=== PATIENT | female | born 1975 | race Caucasian/White ===

== ENCOUNTER 2021-05-14 20:09 | Emergency (ER) | payer MEDICARE, BC, MEDICAID, SELFPAY ==
--- NOTE | ~2021-05-14 | XR_ITS ---
EXAMINATION: XR shoulder RT min 2V EXAM DATE: 05/14/2021 20:35 INDICATION: Fell yesterday with right shoulder pain, initial encounter. TECHNIQUE: The following right shoulder projections obtained: frontal projection with internal rotati on, frontal projection with external rotation, Grashey, and scapular Y view (4+ views). There are no prior studies for comparison. FINDINGS: There is acute closed posttraumatic fracture through the right clavicular at its distal asp ect, essentially nondisplaced. This appears to be extra-articular, just proximal to the acromioclavic ular joint. The glenohumeral joint is unremarkable, no other fracture identified. IMPRESSION: Acute right clavicular fracture near the acromioclavicular joint. Reviewed, dictated and finalized at location A.
[2021-05-14 20:20] VITALS: BP 101/72; PULSE 96; RESP 20; TEMP 36.9; O2SAT 100
--- NOTE | 2021-05-14 20:28 | ED.UPPEXIN ---
HPI - Extremity Injury (Upper) General Chief Complaint: Extremity Injury, Upper Stated Complaint: shoulder pain Time Seen by Provider: 05/14/21 20:13 Source: patient Mode of arrival: ambulatory Limitations: no limitations History of Present Illness HPI narrative: This is a 45-year-old female that presents to the emergency department for right shoulder pain after a fall yesterday afternoon. Reports she tripped and fell. Landed on her right shoulder. Does report hitting her head. Denies loss of consciousness. Reports since the fall she has had pain in her right shoulder. Worse with movement and relieved with rest. She has not taken anything for pain. Denies vision changes, vomiting, numbness, or weakness. Related Data Allergies Allergy/AdvReac Type Severity Reaction Status Date / Time No Known Allergies Allergy Unverified 05/14/21 20:24 Review of Systems Review of Systems: Narrative: CONSTITUTIONAL: Denies fever EYES: Denies visual changes GASTROINTESTINAL: Denies vomiting MUSCULOSKELETAL: Reports joint pain and myalgia. Denies back pain NEUROLOGIC: Denies headache, numbness, or weakness. All systems reviewed & are unremarkable except as noted in HPI and below PMFSH Past Medical History Medical History (Updated 05/14/21 @ 21:28 by Collette Meza PA-C) History of autism Social History Social History (Updated 05/14/21 @ 20:30 by Collette Meza PA-C) Smoking status: Never smoker Exam Narrative: Exam Narrative: GENERAL: Well-appearing, well-nourished, and in no acute distress. HEAD: Normocephalic, atraumatic. EYES: PERRLA and EOMI. ENT: Nares clear, no rhinorrhea or epistaxis. Mucous membranes moist. Oropharynx without tonsillar hypertrophy exudate or other lesions. Bilateral TMs pearly isaac non-bulging NECK: Supple. No adenopathy or masses. No midline cervical spine tenderness CHEST: Clear to auscultation. No respiratory distress. No wheezes rales or rhonchi HEART: Regular rate and rhythm. No murmur heard. Normal peripheral pulses. EXTREMITIES: Normal range of motion. No edema or obvious deformity. Normal radial pulses SKIN: Warm, dry, no rash. NEURO: No focal deficits. Alert and oriented x3. Cranial nerves II through XII grossly intact PSYCH: Normal mood and affect Course Vital Signs Vital signs: Vital Signs Temperature 98.5 F 05/14/21 20:20 Pulse Rate 96 05/14/21 20:20 Respiratory Rate 20 05/14/21 20:20 Blood Pressure 101/72 05/14/21 20:20 Pulse Oximetry 100 05/14/21 20:20 Temperature 98.5 F 05/14/21 20:20 Pulse Rate 96 05/14/21 20:20 Respiratory Rate 20 05/14/21 20:20 Blood Pressure 101/72 05/14/21 20:20 Pulse Oximetry 100 05/14/21 20:20 MDM - Extremity Injury (Upper) MDM Narrative Medical decision making narrative: Patient presents to the emergency department after a ground-level fall yesterday with right shoulder pain. Patient did report hitting her head, denies any loss of consciousness. Denies vision changes, vomiting, numbness or weakness. She is neurologically intact. Vitals are stable. Right shoulder x-ray shows a clavicular fracture near the AC joint. Patient placed in a sling. Will be given pain medication as needed. She is to follow-up with orthopedics. She was given warnings to return to the ER Imaging Data Radiologist's impression: ITS Impressions Shoulder X-Ray 05/14/21 20:42 IMPRESSION: Acute right clavicular fracture near the acromioclavicular joint. Critical Care Time Critical Care Time Critical Care Time: No Discharge Plan Discharge Clinical Impression: Closed fracture of right clavicle Qualifiers: Encounter type: initial encounter Clavicle location: lateral end Fracture alignment: nondisplaced Qualified Code(s): S42.034A - Nondisplaced fracture of lateral end of right clavicle, initial encounter for closed fracture Patient Disposition: Home, Self-Care Condition: Stable Instructions: Clavicle Fra
== END 2021-05-14 21:37 | disposition home or self-care (01) ==
PROVIDERS: Emergency Provider Emergency Medicine
DX: S42.034A Nondisplaced fracture of lateral end of right clavicle, initial encounter for closed fracture (principal); W19.XXXA Unspecified fall, initial encounter
CPT/HCPCS: 73030; 99284; A4565